=== PATIENT | female | born 1950 | race Asian ===

== ENCOUNTER 2016-08-06 21:45 | Emergency (ER) | payer OTHER ==
[2016-08-06 21:59] VITALS: TEMP 98.4
--- NOTE | 2016-08-06 22:06 | EDPHY ---
H & P Stated Complaint: noticed vaginal bleeding while showering tonight HPI/ROS: CHIEF COMPLAINT: Vaginal bleed HISTORY OF PRESENT ILLNESS: Patient complains of vaginal bleeding that started around 8:00 p.m.. This was reported as a heavy bleeding that lasted for 20 minutes. Some pelvic cramping that was minimally painful. No fever. No chills. No chest pain. No lightheadedness or syncope. No bleeding from any other site. She is not taking anticoagulants. This is not returned since original onset. She has no previous diagnosis of pelvic pathology. No other associated complaints or modifying factors. Patient speaks very little Polish , but her adult son is at bedside and provides interpretation with her permission. REVIEW OF SYSTEMS: Ten systems reviewed and are negative unless otherwise noted in the HPI PERTINENT MEDICAL HISTORY: Denies EXAMINATION General Appearance: Alert, no distress Head: normocephalic, atraumatic Eyes: Pupils equal and round, no conjunctival pallor or injection ENT, Mouth: Mucous membranes moist. Uvula midline. Neck: Normal inspection, supple, non-tender Respiratory: Lungs are clear to auscultation. No wheezing, rhonchi or crackles. Cardiovascular: Regular rate and rhythm. No murmur. Pulses intact distally. Gastrointestinal: Abdomen is soft and nontender. No tympany. No rigidity. No guarding. Nonacute abdomen. Neurological: A&O, nonfocal, GCS 15 Skin: Warm and dry, no rash. No petechiae or purpura Extremities: Nontender, no pedal edema Psychiatric: Mood and affect normal DIFFERENTIAL DIAGNOSES: Including but not limited to vaginal bleeding, dysfunctional uterine bleeding, uterine fibroids, endometriosis, endometritis MDM: 10:05 p.m. Vaginal bleeding this evening that lasted 20-30 minutes. Minimal pelvic discomfort at the time. She is not currently bleeding. She has no previous history of uterine fibroids or uterine pathology. She normal vital signs and does not take any blood thinners. Laboratory studies and pelvic ultrasound have been ordered. 10:50 p[address]. Notified by radiologist Dr. Patel. Pelvic ultrasound reveals minimal, simple appearing fluid in the fundus of the uterus. No obvious mass. No uterine fibroids. No other acute findings. I have re-evaluated the patient. She is resting comfortably. She is actually already put her clothes on and asking to be discharged home. We discussed follow up with cutter and presser for further care. We discussed return to the emergency department for increasing bleeding, greater than 1 pad per hour. We also discussed return for any dizziness, lightheadedness, near-syncope or chest pain. She is comfortable with this plan and discharged home in stable condition. SUPERVISION: This patient was independently evaluated without direct examination by the attending physician. Case was discussed with attending physician. Source: Patient, Family Exam Limitations: No limitations - Personal History Current Tetanus/Diphtheria Vaccine: Yes - Medical/Surgical History Hx Asthma: No Hx Chronic Respiratory Disease: No Hx Diabetes: No Hx Cardiac Disease: No Hx Renal Disease: No Hx Cirrhosis: No Hx Alcoholism: No Hx HIV/AIDS: No Hx Splenectomy or Spleen Trauma: No Other PMH: PSHx: denies. PMHx: recent dental inflammation - Social History Smoking Status: Never smoked Constitutional: Initial Vital Signs Temperature (C) 98.4 F 08/06/16 21:57 Heart Rate 67 08/06/16 21:57 Respiratory Rate 15 08/06/16 21:57 Blood Pressure 133/74 H 08/06/16 21:57 O2 Sat (%) 95 08/06/16 21:57 O2 Delivery Mode Room Air Allergies/Adverse Reactions: ibuprofen Allergy (Verified 08/06/16 21:57) Home Medications: Medication Instructions Recorded Miscellaneous Medical Supply [NO 1 ea MIS AD 10/11/11 HOME MEDS] Departure - Departure Disposition: Home, Routine, Self-Care Clinical Impression: Abnormal uterine bleeding Condition: Good Instructions: Dysfunctional Uterine Bleeding (ED) Additional Instructions: Contact gynecology for definitive care. Return to ER for any pain, lightheadedness, dizziness, chest pain or bleeding greater than 1 pad per hour Referrals: NONE *PRIMARY CARE P,. [Primary Care Provider] - As per Instructions Miley Youngblood MD [Medical Doctor] - As per Instructions
[2016-08-06 22:23] LABS: % IMMATURE GRANULYOCYTES 0.2 % (0.0-1.1); ABSOLUTE IMMATURE GRANULOCYTES 0.01 10^3/uL (0.00-0.10); ADD DIFF? NO; ADD MORPH? NO; ADD SCAN? NO; ATYPICAL LYMPHOCYTE FLAG 20 (0-99); FRAGMENT RBC FLAG 0 (0-99); HEMATOCRIT 45.5 % (38.0-47.0); HEMOGLOBIN 14.8 g/dL (12.6-16.3); LEFT SHIFT FLG 0 (0-99); LIPEMIA HEMOLYSIS FLAG 80 (0-99); MEAN CELL HEMOGLOBIN 31.8 pg (27.9-34.1); MEAN CELL HEMOGLOBIN CONCENTR. 32.5 g/dL (32.4-36.7); MEAN CELL VOLUME 97.6 fL (81.5-99.8); PLATELET CLUMPS FLAG 10 (0-99); PLATELET COUNT 212 10^3/uL (150-400); RED BLOOD CELL COUNT 4.66 10^6/uL (4.18-5.33); RED CELL DISTRIBUTION WIDTH 12.8 % (11.5-15.2)
[2016-08-06 22:35] LABS: INR 0.92 (0.83-1.16); PROTIME(PATIENT) 12.3 SEC (12.0-15.0)
[2016-08-06 22:36] LABS: APTT 27.9 SEC (23.0-38.0)
[2016-08-06 22:56] LABS: ANION GAP 12 mEq/L (8-16); CALCIUM 9.8 mg/dL (8.5-10.4); CARBON DIOXIDE 27 mEq/l (22-31); CHLORIDE 101 mEq/L (97-110); CREATININE 0.7 mg/dL (0.6-1.0); GLOMERULAR FILTRATION RATE > 60; GLUCOSE 100 mg/dL (70-100); POTASSIUM 4.5 mEq/L (3.5-5.2); SODIUM 140 mEq/L (134-144)
[2016-08-06 22:59] VITALS: BP 129/78; PULSE 70; RESP 16; O2SAT 97
== END 2016-08-06 23:05 | disposition home or self-care (01) ==
DX: N93.9 Abnormal uterine and vaginal bleeding, unspecified (principal)